=== PATIENT | female | born 1960 | race Caucasian/White ===

== ENCOUNTER 2018-05-29 06:04 | Day surgery (SDC) | payer BC ==
[~2018-05-29 06:04] MED LIST: CEFAZOLIN 2 Gram 2 GM/50 ML BAG IVPB ONE; CELECOXIB 100 MG CAPSULE PO ONE; FAMOTIDINE 20MG TABLET PO ONE; MECLIZINE 25 MG TABLET PO ONE; METOCLOPRAMIDE 10 MG TABLET PO ONE; VANCOMYCIN HCL 1,000 MG in DEXTROSE 5 % IN WATER 250 ML IVPB ONE
[2018-05-29] MEDS ORDERED: 0.9 % SODIUM CHLORIDE 10 ML VIAL IVP ONE (06:05)
[2018-05-29] MEDS ORDERED: DEXAMETHASONE 4 MG/ML 1ML VIAL IVP ONE (06:05)
[2018-05-29] MEDS ORDERED: PROPOFOL 10 MG/ML VIAL IV ONE (06:05)
[2018-05-29] MEDS ORDERED: MIDAZOLAM HCL 2MG/2ML VIAL IV ONE (06:05)
[2018-05-29] MEDS ORDERED: BUPIVACAINE 0.5% W/EPI MPF 30 ML VIAL IVP ONE (06:05)
[2018-05-29] MEDS ORDERED: ROPIVACAINE HCL (NAROPIN) /PF 5MG/ML 20ML VIAL IV ONE (06:05)
[2018-05-29] MEDS ORDERED: LIDOCAINE 2% MDV (20MG/ML) 20ML VIAL IV ONE (06:05)
[2018-05-29] MEDS ORDERED: EPHEDRINE SULFATE 50 MG/ML ML IV ONE (06:05)
[2018-05-29] MEDS ORDERED: TRANEXAMIC ACID 1,000 MG/10 ML ML IV ONE (06:05)
[2018-05-29] MEDS ORDERED: FENTANYL PF 100MCG/2ML VIAL IV ONE (06:05)
[2018-05-29 07:30] LABS: ABO GROUP A; ANTIBODY SCREEN NEGATIVE (NEGATIVE); RH TYPE POSITIVE
[2018-05-29] MEDS ORDERED: ZOLPIDEM TARTRATE 5 MG TABLET PO PRN (09:59)
[2018-05-29] MEDS ORDERED: ACETAMINOPHEN W/ CODEINE 300MG/60MG TABLET PO PRN ×2 (09:59)
[2018-05-29] MEDS ORDERED: KETOROLAC 30 MG/ML VIAL IVP PRN ×2 (09:59)
[2018-05-29] MEDS ORDERED: HYDROCODONE/APAP 10/325 TABLET PO PRN (09:59)
[2018-05-29] MEDS ORDERED: MAGNESIUM HYDROXIDE 30 ML UDC PO PRN (09:59)
[2018-05-29] MEDS ORDERED: ONDANSETRON HCL IV 4 MG/2 ML VIAL IVP PRN (09:59)
[2018-05-29] MEDS ORDERED: DIPHENHYDRAMINE HCL 25 MG CAPSULE PO PRN (09:59)
[2018-05-29] MEDS ORDERED: NALOXONE 0.4 MG/1 ML VIAL IVP PRN (09:59)
[2018-05-29] MEDS ORDERED: TRAMADOL HCL 50 MG TABLET PO PRN (09:59)
[2018-05-29] MEDS ORDERED: ACETAMINOPHEN 325 MG TAB PO PRN (09:59)
[2018-05-29] MEDS ORDERED: HYDROMORPHONE HCL 2 MG/ML VIAL IM PRN (09:59)
[2018-05-29] MEDS ORDERED: BISACODYL 10 MG SUPP RC PRN (09:59)
[2018-05-29] MEDS ORDERED: AL HYDROX/MAG HYDROX 30ML UD PO PRN (09:59)
[2018-05-29] MEDS ORDERED: ALBUTEROL HFA 8 GM INHALER INH PRN (10:30)
[2018-05-29] MEDS: DOCUSATE SODIUM 100 MG CAPSULE PO SCH ×2 (11:38→21:18)
[2018-05-29] MEDS: FERROUS SULFATE 325 MG TAB PO SCH (11:38)
[2018-05-29] MEDS: CITALOPRAM 20 MG TABLET PO SCH (11:56)
[2018-05-29] MEDS: PANTOPRAZOLE SODIUM 40 MG TABLET PO SCH (11:56)
[2018-05-29] MEDS: HYDROCODONE/APAP 10/325 TABLET PO PRN (12:47)
--- NOTE | 2018-05-29 13:47 | Rehab Evaluation ---
Patient Information - Patient Information Diagnosis: L knee OA Ordered Treatment: PT Evaluate and Treat Status: Initial Evaluation Surgery: Yes (L TKA) Date of Surgery: 05/29/18 Past Medical/Surgical Hx: PAST MEDICAL/SURGICAL HISTORY Past Surgical History c scope left knee scope tonsils PMH - Respiratory Hx Respiratory Disorders Yes Hx Asthma Yes: uses inhaler usually once a day Comment: snores PMH - Cardiovascular Hx Cardiovascular Disorders Yes Hx Irregular Heartbeat Yes: occassionally R/T MVP Hx Heart Murmur Yes Hx of Mitral Valve Prolapse Yes Exercise Tolerance Good PMH - Neuro Hx Neurological Disorders Yes Hx Dizziness Yes: sometimes when standing up PMH - GI Hx Gastrointestinal Disorders Yes Hx Gastroesophageal Reflux Yes: on meds good control PMH - Hx Genitourinary Disorders No Hx Age of Menopause 53 PMH - Endocrine Hx Endocrine Disorders No PMH - Musculoskeletal Hx Musculoskeletal Disorders Yes Hx Arthritis Yes: left knee PMH - Psych Hx Psychiatric Problems Yes Hx Depression Yes PMH - Hematology/Oncology Hx Hematology/Oncology No Disorders Premorbid Status: Detail (Prior to surgery the patient was independent with all mobility.) Social History: Detail (The patient lives with spouse in a 2 story house with 1 step, a platform and 1 step at the enterance. The patient will not be using the second story after surgery. The bathroom is equipped with a tub/shower combination with a hand held shower and a standard toilet. No grab bars are present in the bathroom. The patient has a front wheeled walker, 4 pronged cane and a shower bench.) Precautions: [place], Fall, Other (WBAT on the L LE) - Time With Patient Total Time Spent With Patient (Min): 30 Treatment Procedures: Detail (Initial Evaluation) Subjective Information - Subjective Information Per Patient (The patient has complaints of L knee pain level 3 at the highest.) Objective Data - Mental Status Patient Orientation: Oriented x3 - Visual Perception Appears within normal limits for therapeutic activities - ROM Not within normal limits (The patient's L knee AROM was limited as to be expected following surgery. All other AROM was WNL.) - Strength/Tone Not within normal limits (The patient's L LE strength was not tested secondary to surgery, however was functional ie: pt was able to complete a SLR. The patient's R LE strength was 5/5.) - Bed Mobility Independent (The patient was independent with supine to and from sit transfer.) - Transfers Independent (The patient was independent with sit to and from stand transfer.) - Balance Balance Sitting: Good Balance Standing: Good - Sensation Intact - Gait Detail (The patient ambulated with a front wheeled walker WBAT on the L LE a distance of 80 x 1 with independently/ supervision for safety only) Therapy Assessment - Therapy Assessment Detail (The patient was independent with ambulation, bed mobility and transfers. Feel the patient will progress well in PT.) Problem List - Problem List Physical Therapy Problem List: Detail (Decreased L knee AROM s/p surgery and Decreased L LE strength.) Goals - Goals Physical Therapy Goals: 1)The patient will be independent with TKA HEP. 2) The patient will ambulate on stairs using proper technique with supervision for safety. Prognosis - Prognosis Good Plan - Plan Physical Therapy Plan: PT 1-2 sessions for instruction in HEP and gait training on the stairs.
[2018-05-29] MEDS: CEFAZOLIN 2 Gram 2 GM/50 ML BAG IVPB SCH (17:02)
[2018-05-29] MEDS: POTASSIUM CHLORIDE/D5-0.9%NACL 20 MEQ/1,000 ML BAG IV SCH ×2 (19:32→21:18)
[2018-05-30] MEDS: HYDROCODONE/APAP 10/325 TABLET PO PRN ×3 (00:16→11:38)
[2018-05-30] MEDS: CEFAZOLIN 2 Gram 2 GM/50 ML BAG IVPB SCH ×2 (00:17→07:17)
[2018-05-30] MEDS: POTASSIUM CHLORIDE/D5-0.9%NACL 20 MEQ/1,000 ML BAG IV SCH ×2 (05:03→11:40)
[2018-05-30] MEDS: PANTOPRAZOLE SODIUM 40 MG TABLET PO SCH (06:04)
[2018-05-30 06:55] LABS: HEMATOCRIT 33.9 % (35.0-47.0); HEMOGLOBIN 10.6 gm/dl (11.6-16.0)
[2018-05-30 07:14] LABS: BLOOD UREA NITROGEN 11 mg/dL (6-20); CREATININE 0.6 mg/dL (0.5-0.9); EST GLOMERULAR FILTRATION RATE > 60 mL/min; GLUCOSE,RANDOM 99 mg/dL (74-109)
--- NOTE | 2018-05-30 08:50 | Operative Note ---
DATE OF SURGERY: 05/29/2018 Surgeon: Clement Medina M.D. PREOPERATIVE DIAGNOSIS: Endstage arthrosis of the left knee. POSTOPERATIVE DIAGNOSIS: Endstage arthrosis of the left knee. OPERATION: Cemented left total knee arthroplasty using [employer] II components, with a size 5 Oxinium femur, a size 5 stem tibia base plate, an 11 mm lipped highly cross-linked tibial insert, and a 32 mm all plastic patella. Anesthesia: Spinal. PREPARATION: Chloraprep. INDIVIDUAL CONSIDERATIONS: None. PROCEDURE: The patient was taken to the operating room and placed supine on the operating room table. She had a successful induction with spinal anesthetic. Her left lower extremity was prepped and draped in the usual fashion. The patient had a midline approach to the knee. The limb was elevated, the tourniquet was inflated to 250 mmHg. Sharp dissection carried down through the skin and subcutaneous tissue, small veins were coagulated with the Bovie. A medial arthrotomy was performed, the patella was everted, the knee was flexed. The patient had exposed bone in the medial and patellofemoral compartments. The fat pad was resected, the ACL remnants were sacrificed. Provisional anterior meniscectomies were performed, and the capsule was released from the medial proximal tibia. The initial femoral airline transport pilot hole was then made free hand. The intramedullary femoral cutting jig was placed. It was cut in 7.0 degrees of valgus and adjusted for rotation, secured with pins for a 10 mm resection. The initial transverse cut was then made. A skid guide was placed in the anterior and posterior airline transport pilot holes. It was found that a size 5 would be appropriate. The anterior and posterior cuts followed by chamfer cuts were made. Osteophytes removed and a size 5 trial was placed and found to fit well. The tibia was brought forward and the remainder of the meniscal remnants were removed with a Bovie. The extraarticular tibial cutting jig was placed. It was cut in neutral with a 3 degree AP slope. Care was taken to adjust for rotation and flexion using the extraarticular alignment guide and bony landmarks. It was set for a 9 mm resection, keyed off the high lateral side and secured with pins. When cutting the tibia, care was taken to preserve the PCL insertion on the tibia. After making the cut, I removed the osteophytes primarily medially and found that a size 5 baseplate trial fit appropriately, after adjusting rotation and secured with pins, I found that an 11 mm implant would be appropriate. The femoral airline transport pilot holes were impacted and the tri-flange tibial keel stamp was impacted and these trial components removed. The patient had a thick patella, and roughly 9 mm of bone was removed free hand. I could easily fit a 32 mm diameter patella and the 3 airline transport pilot holes were drilled. The tourniquet was let down briefly to get bleeders posteriorly and placed back up again. The knee was then thoroughly irrigated out with pulsatile Betadine and saline to remove any visual or palpable debris. The bony surfaces were then dried. A size 5 stem tibia baseplate was cemented into place, followed by impaction of the 11 mm lipped highly cross-linked tibial insert, followed by cementing in the size 5 Oxinium femur, followed by cementing in the 32 mm all plastic patella. The implant surfaces were compressed, excess cement was removed, and after the cement had set, there was excellent motion and stability, ligamentous balance, rotation alignment, and patellofemoral tracking were normal. No lateral release was required. After irrigation again, the tourniquet was let down, hemostasis was obtained with a Bovie. The capsule and periosteum and skin and subcutaneous tissue were infiltrated with 30 mL of 0.5% Marcaine with epinephrine. The capsule was then closed with running 2 Quill, the subq was closed in layers of running 0 Quill, the skin was closed with asim. The patient did receive 1 gram of tranexamic acid IV preop. I mixed 1 gram of tranexamic acid with 30 mL of saline, injected it into the knee through a sterile 18 gauge needle and a sterile bulky compression NAVEED type dressing was applied. The patient tolerated the procedure well. The needle and sponge counts were correct. Estimated blood loss was minimal. She was taken back to recovery in good condition. There were no complications. WADE
[2018-05-30] MEDS: FERROUS SULFATE 325 MG TAB PO SCH (09:53)
[2018-05-30] MEDS: DOCUSATE SODIUM 100 MG CAPSULE PO SCH (09:53)
[2018-05-30] MEDS: CITALOPRAM 20 MG TABLET PO SCH (09:53)
[2018-05-30] MEDS ORDERED: RIVAROXABAN 10 MG TABLET PO SCH (10:00)
--- NOTE | 2018-05-30 10:44 | Physical Therapy Tx Note ---
Physical Therapy Tx Note - Treatment Note Tolerated: Good Total Time Spent With Patient: 20 Physical Therapy Tx Note: Detail (The patient was in bed when PT arrived and feeling "soreness" in L quad. The patient completed the following TKA exercises: heel slides supine and seated,SLR, ankle pumps, quad sets, gluteal sets and hamstring sets. The patient ambulated with front wheeled walker a distance of 80 feet x 1, WBAT on the L LE . The patient ambulated on stairs with use of one railing and folded walker using proper technique with supervision for safety only. The patient has met all inpatient Pt goals and is discharged from inpatient PT. The patient is to receive Home PT services.) Physical Therapy Problem List: Detail (Decreased L knee AROM s/p surgery and Decreased L LE strength.) Physical Therapy Goals: 1)The patient will be independent with TKA HEP (Goal Met ). 2) The patient will ambulate on stairs using proper technique with supervision for safety. (Goal Met) Physical Therapy Plan: The patient has met all inpatient PT goals and is discharged from inpatient PT.
--- NOTE | 2018-05-30 11:35 | Rehab Evaluation ---
Patient Information - Patient Information Diagnosis: L knee OA Ordered Treatment: OT Evaluate and Treat Status: Initial Evaluation Surgery: Yes (L TKA) Date of Surgery: 05/29/18 Past Medical/Surgical Hx: PAST MEDICAL/SURGICAL HISTORY Past Surgical History c scope left knee scope tonsils PMH - Respiratory Hx Respiratory Disorders Yes Hx Asthma Yes: uses inhaler usually once a day Comment: snores PMH - Cardiovascular Hx Cardiovascular Disorders Yes Hx Irregular Heartbeat Yes: occassionally R/T MVP Hx Heart Murmur Yes Hx of Mitral Valve Prolapse Yes Exercise Tolerance Good PMH - Neuro Hx Neurological Disorders Yes Hx Dizziness Yes: sometimes when standing up PMH - GI Hx Gastrointestinal Disorders Yes Hx Gastroesophageal Reflux Yes: on meds good control PMH - Hx Genitourinary Disorders No Hx Age of Menopause 53 PMH - Endocrine Hx Endocrine Disorders No PMH - Musculoskeletal Hx Musculoskeletal Disorders Yes Hx Arthritis Yes: left knee PMH - Psych Hx Psychiatric Problems Yes Hx Depression Yes PMH - Hematology/Oncology Hx Hematology/Oncology No Disorders Premorbid Status: Detail (Prior to surgery the patient was independent with all mobility, meal prep, laundry, home mgmt, some yard work and driving.) Social History: Detail (The patient lives with spouse in a 2 story house with 1 step, a platform and 1 step at the entrance. The patient will not be using the second story after surgery. The bathroom is equipped with a tub/shower combination with a hand held shower and a standard toilet. No grab bars are present in the bathroom. The patient has a front wheeled walker, quad cane and a shower bench.) Precautions: [place], Fall, Other (WBAT on the L LE) - Time With Patient Total Time Spent With Patient (Min): 35 Treatment Procedures: Detail (OT eval low complexity) Subjective Information - Subjective Information Per Patient Objective Data - Pain Pain Present: Yes (08/22) - Mental Status Patient Orientation: Oriented x3 - Visual Perception Appears within normal limits for therapeutic activities - ROM Within normal limits (Moises UE AROM WNL) - Strength/Tone Within normal limits (Moises UE strength WNL) - Coordination Appears within normal limits for therapeutic activities - Bed Mobility Independent (Ind with supine to sit and sit to supine.) - Transfers Independent (Ind with sit to stand from EOB) - Balance Balance Sitting: Good Balance Standing: Good - Sensation Intact - Gait Detail (Pt ambulating in room with 2 wheeled walker Indly.) - ADL's/IADL's Detail (Pt educated and able to demonstrate learning of modified LE dressing techniques including doffing slipper socks and donning dao sock, socks, pants and tennis shoes. Pt educated re: kitchen and shower safety and modifications, pt verbalized understanding.) Therapy Assessment - Therapy Assessment Detail (Pt is Ind with modified LE dressing techniques.) Problem List - Problem List Physical Therapy Problem List: Detail (Decreased L knee AROM s/p surgery and Decreased L LE strength.) Occupational Therapy Problem List: Detail (No current IP OT problems identified. ) Goals - Goals Physical Therapy Goals: 1)The patient will be independent with TKA HEP (Goal Met ). 2) The patient will ambulate on stairs using proper technique with supervision for safety. (Goal Met) Occupational Therapy Goals: No current OT goals identified. Prognosis - Prognosis Good Plan - Plan Physical Therapy Plan: The patient has met all inpatient PT goals and is discharged from inpatient PT. Occupational Therapy Plan: No further IP OT recommended. Thank you for this referral.
== END 2018-05-30 14:45 | disposition home health service (06) ==
LOC: SUR 06:04 → MEDSURG 11:10 → SUR 05-30 14:45
PROVIDERS: ATTEND Orthopaedic Surgery
DX: M17.12 Unilateral primary osteoarthritis, left knee (principal); J45.909 Unspecified asthma, uncomplicated
CPT/HCPCS: 27447; 01402; 64447; 85018; 85014; 80048; 86900; 86901; 86850; 90686; J3370; J3010; J0690 ×2; J3490 ×3; J2795; 76942; 97530; J3480; J7060